=== PATIENT | male | born 1980 | race Caucasian/White ===

== ENCOUNTER 2017-02-13 17:45 | Emergency (ER) | payer OTHER ==
--- NOTE | ~2017-02-13 | US115 ---
[facility] A Service of [facility] RADIOLOGY TEXT RESULTS PATIENT: NESTOR INFANTE JR LOCATION: [place] : 78 UNIT #: [id number] AGE: [address]: Jamari Madrigal DO SEX: M ORDER DR: [id number] [facility] [address] [place], [place] [address] [id number] E MR#: [id number] Acc #: [id number] NAME: NESTOR INFANTE JR : 1980 SEX: M STUDY DATE/TIME: 02/13/2017 21:12 UNIT: [facility] ROOM: STUDY DESCRIPTION: US Scrotum and Contents Attending Physician: Jamari Madrigal D.O. Ordering Physician: Jamari Madrigal D.O. Primary Care Physician: No Primary Care Physician MEDICAL IMAGING REPORT This report is preliminary unless electronic signature is present EXAM Testicular ultrasound, bilateral, 02/13/2017. INDICATION 37-year-old male with lower abdominal pain for 2 weeks. TECHNIQUE Keenan-scale, color Doppler, and spectral analysis of the testicles was performed bilaterally. COMPARISON 08/22/2012 FINDINGS Right testicle measures 4.6 cm long axis and the left also measures 4.6 cm. Both testicles demonstrate good flow at the time of the study. Epididymides appear within normal limits. No evidence of orchitis or epididymitis on either side. Trace amount of gaudencio-testicular fluid bilaterally within the physiologic range. There appear to be a few faint microliths of each testicle. Suggest interval followup ultrasound in 1 year for reassessment. IMPRESSION 1. Essentially negative testicular ultrasound. Both testicles demonstrate good flow. There is no evidence of epididymitis or orchitis. 2. Trace gaudencio-testicular fluid bilaterally. 3. A few scattered microliths. A followup ultrasound could be performed in 1 year for reassessment. Dictated by... [facility] A Service of [facility] RADIOLOGY TEXT RESULTS PATIENT: NESTOR INFANTE JR LOCATION: [facility] : [birth year] UNIT #: [id number] AGE: [address]: Jamari Madrigal DO SEX: M ORDER DR: Zac Orlando M.D. THIS IS AN ELECTRONICALLY VERIFIED REPORT Zac Orlando M.D. at 02/14/2017 2:22 PM LINDA/jo TD: 02/14/2017 10:49 JOB #: [id number] MEDICAL IMAGING REPORT Page 1 of 1 COPY
--- NOTE | ~2017-02-13 | CT2 ---
[facility] A Service of [facility] RADIOLOGY TEXT RESULTS PATIENT: NESTOR INFANTE JR LOCATION: [place] : [birth year] UNIT #: [id number] AGE: [address]: Jamari Madrigal DO SEX: M ORDER DR: [id number] [facility] [address] [place], [place] [address] [id number] E MR#: [id number] Acc #: [id number] NAME: NESTOR INFANTE JR : 1980 SEX: M STUDY DATE/TIME: 02/13/2017 19:35 UNIT: [facility] ROOM: STUDY DESCRIPTION: CT Abd and Pelv W Cont Attending Physician: Jamari Madrigal D.O. Ordering Physician: Joe Alvarado M.D. Primary Care Physician: No Primary Care Physician MEDICAL IMAGING REPORT This report is preliminary unless electronic signature is present EXAM Abdomen and pelvis CT with contrast, 02/13/2017. INDICATIONS Abdominal pain 4 days, nausea vomiting, left lower quadrant pain. TECHNIQUE Contrast-enhanced abdomen and pelvis CT was performed and compared 06/04/2016. This CT exam was performed with one or more of the following radiation dose reduction techniques: automatic exposure control, adjustment of mA and/or kV according to patient size, and iterative reconstruction. FINDINGS CT ABDOMEN Included lung bases are clear. No effusion. Aorta unremarkable. The solid abdominal organs are unremarkable. No adenopathy or drainable fluid collection. CT pelvis Bladder and prostate unremarkable. Bowel and appendix unremarkable. Inguinal canals unremarkable. There is a unilateral pars defect on the right at L5-S1. Probable subtle defect on the left as well. IMPRESSION 1. Negative contrast-enhanced abdomen and pelvis CT. Appendix normal. No bowel obstruction or focal inflammatory change. Dictated by... Zac Orlando M.D. [facility] A Service [facility] RADIOLOGY TEXT RESULTS PATIENT: NESTOR INFANTE JR LOCATION: [place] : 78 UNIT #: [id number] AGE: [address]: Jamari Madrigal DO SEX: M ORDER DR: THIS IS AN ELECTRONICALLY VERIFIED REPORT Zac Orlando M.D. at 02/14/2017 2:20 PM Boris TD: 02/14/2017 10:14 JOB #: [id number] MEDICAL IMAGING REPORT Page 1 of 1 COPY
[~2017-02-13 17:45] MED LIST: ACETAMINOPHEN PO; ADVIL200 M1; BACITRACIN30 GM TOP; BACTRIM DS TABL1 TA1 PO; BACTRIM DS TABL1 TAB PO; CIPRO PO; DOXYCYCLINE PO; DOXYCYCLINE150 MG PO; ELIMITE60 GM TOP; FLAGYL PO; FLEXERIL PO; FLEXERIL10 MG PO; FLOMAX0.4 M1 PO; IBUPROFEN PO; LORTAB 5/500 TA1 TA1 PO; LORTAB 5/500 TA1 TA2 PO; MEDROL PO; MOTRIN600 M1 PO; NABUMETONE PO; NAPROXEN500 M1 PO; NO MEDICATIONS; PHENERGAN PR; PHENERGAN25 M1 PO; PHENERGAN25 MG PO; PREDNISONE PO; PREDNISONE10 MG/DOSE PO; PRILOSEC20 M1 PO; SKELAXIN PO; ULTRAM PO; VICODIN 5/1 TAB 5/50 PO; VICODIN 5/500 T1 TAB PO
[2017-02-13 18:22] LABS: BASOPHIL# 0.1 X10e3 (0-0.3); BASOPHIL% 1.1 % (0-2.5); EOSINOPHIL# 0.2 X10e3 (0-0.7); EOSINOPHIL% 2.3 % (0.0-7.0); HEMATOCRIT 45.5 % (38.0-50.0); HEMOGLOBIN 15.2 gm/dL (13.0-16.0); LYMPHOCYTE# 2.8 X10e3 (1.0-3.5); LYMPHOCYTE% 38.4 % (17.0-45.0); MEAN CORPUSCULAR HEMOGLOBIN 30.1 PG (28-34); MEAN CORPUSCULAR HGB CONC 33.4 g/dL (30-36); MONOCYTE# 0.8 X10e3 (0-1.0); MONOCYTE% 11.5 % (3.0-12.0); NEUTROPHIL# 3.4 X10e3 (1.5-7.1); NEUTROPHIL% 46.7 % (40-75); PLATELET COUNT 265 X10e3 (140-420); RED BLOOD COUNT 5.05 X10e (3.90-5.60); RED CELL DISTRIBUTION WIDTH 13.8 % (11.0-15.5); WHITE BLOOD COUNT 7.3 X10e3 (4.0-10.5)
[2017-02-13 18:25] LABS: DIFF IND NO
[2017-02-13 18:43] LABS: ALBUMIN SERUM 3.9 g/dL (3.5-5.0); BILIRUBIN, DIRECT 0.1 mg/dL (0.0-0.2); BILIRUBIN,INDIRECT 0.4 mg/dL (0.0-0.9); BILIRUBIN,TOTAL 0.5 mg/dL (0.2-2.0); CALCIUM SERUM 9.4 mg/dL (8.4-10.2); GLOM FILT RATE Estimated 95.1 mL/min (>60)
[2017-02-13 19:35] LABS: URINE SOURCE CLEAN CATCH
[2017-02-13 19:41] LABS: URINE APPEARANCE CLEAR; URINE BILIRUBIN NEG (NEG); URINE BLOOD NEG (NEG); URINE COLOR YELLOW; URINE GLUCOSE NEG (NEG); URINE KETONE NEG (NEG); URINE LEUKOCYTE ESTERASE NEG (NEG); URINE NITRATE NEG (NEG); URINE PH 7.5 (5-8); URINE PROTEIN NEG (NEG); URINE SPECIFIC GRAVITY 1.019 (1.003-1.035); URINE UROBILINOGEN 0.2 MG/DL (NEG)
[2017-02-13 19:52] LABS: CULTURE INDICATED? NO
[2017-02-17 08:04] LABS: CHLAMYDIA TRACH Not Detected (Not Detected); N GONOR Not Detected (Not Detected)
== END 2017-02-13 22:35 | disposition home or self-care (01) ==
LOC: CED 17:45
PROVIDERS: Emergency Medicine
DX: R10.32 Left lower quadrant pain (principal); F32.9 Major depressive disorder, single episode, unspecified; F41.9 Anxiety disorder, unspecified; F17.200 Nicotine dependence, unspecified, uncomplicated; Z88.0 Allergy status to penicillin; Z88.5 Allergy status to narcotic agent
CPT/HCPCS: 36415; 74177; 76870; 80048; 80076; 81003; 83690; 85025; 87491; 87591; 96361; 96374; 96375; 99284; J1170; J2405; Q9967